=== PATIENT | male | born 1950 | race Caucasian/White ===

== ENCOUNTER 2024-05-19 15:04 | Inpatient (IN) | payer OTHER, MEDICARE, MEDICAID ==
[~2024-05-19] VITALS: Ht 165.1 cm; Wt 125.0 kg
[2024-05-19] MEDS: LORazepam 2 mg/ml vial IM ONE (15:37)
[2024-05-19] MEDS: diphenhydrAMINE 50 mg/ml inj IM ONE (15:38)
[2024-05-19] MEDS: haloperidol lactate 5mg/ml inj IM ONE (15:38)
[2024-05-19 17:33] LABS: BILIRUBIN,URINE NEGATIVE (Neg); CLARITY,URINE CLEAR (Clear); COLOR,URINE YELLOW (Yellow); GLUCOSE, URINE 500 mg/dl (Neg); KETONES,URINE NEGATIVE (Neg); LEUKOCYTE ESTERASE ,URINE NEGATIVE (Neg); NITRITES, URINE NEGATIVE (Neg); OCCULT BLOOD,URINE NEGATIVE (Neg); PH,URINE 5.5 (4.8-8.0); PROTEIN,URINE NEGATIVE (Neg); UROBILINOGEN,URINE 0.2 E.U/dL (0.2-1.0)
[2024-05-19 17:34] LABS: ALBUMIN 3.3 G/DL (3.4-5.0); ANION GAP 7 (8-16); BLOOD UREA NITROGEN 19 MG/DL (7-18); BUN/CREATININE RATIO 16.2 (10.0-20.0); CALCIUM 8.2 MG/DL (8.5-10.1); CHLORIDE 104 MMOL/L (99-107); CREATININE 1.17 MG/DL (0.60-1.10); ETHANOL 290 MG/DL (<10); GLUCOSE 160 MG/DL (70-104); MAGNESIUM 2.1 MG/DL (1.5-2.4); POTASSIUM 4.5 MMOL/L (3.5-5.1); PRO BRAIN NATRIURETIC PEPTIDE 396 PG/ML (0-125); SODIUM 140 MMOL/L (135-145); TOTAL CARBON DIOXIDE 28.7 MMOL/L (24-32); eCRCL 51 ML/MIN; eGFR 61 ML/MIN
[2024-05-19 17:35] LABS: BASOPHILS % (AUTO) 0.4 % (0-1); EOSINOPHILS # (AUTO) 0.1 X10'3 (0-0.9); EOSINOPHILS % (AUTO) 2.2 % (0-6); HEMATOCRIT 42.5 % (42.0-52.0); HEMOGLOBIN 14.2 g/dl (14.0-17.9); LYMPHOCYTES % (AUTO) 30.9 % (21-51); MEAN CORPUSCULAR HEMOGLOBIN 33.6 PG (27.0-31.0); MEAN CORPUSCULAR HGB CONC 33.5 g/dL (33.0-36.5); MEAN CORPUSCULAR VOLUME 100.4 FL (78-98); MEAN PLATELET VOLUME 9.2 FL (7.4-10.4); MONOCYTES # (AUTO) 0.6 X10'3 (0-0.9); MONOCYTES % (AUTO) 8.8 % (2-12); NEUTROPHILS # (AUTO) 3.8 X10'3 (1.8-7.7); NEUTROPHILS % (AUTO) 57.7 % (42-75); PLATELET COUNT 210 X10'3 (140-440); RED BLOOD COUNT 4.23 X10'6 (4.70-6.10); RED CELL DISTRIBUTION WIDTH 15.3 % (11.5-14.5); WHITE BLOOD COUNT 6.6 X10'3 (4.5-11.0)
[2024-05-19 17:37] LABS: APTT 28 SECONDS (22-32); PROTHROMBIN TIME 10.5 SECONDS (9.0-12.0)
[2024-05-19 17:41] LABS: UA COLLECTION TYPE CLN CATCH MIDSTREAM
[2024-05-19] MEDS ORDERED: potassium Cl 20 mEq SR tablet PO PRN (17:45)
[2024-05-19] MEDS ORDERED: haloperidol 5mg tablet PO PRN (17:45)
[2024-05-19] MEDS ORDERED: magnesium sulf-water 2g/50mL 50 ML IV PRN (17:45)
[2024-05-19] MEDS ORDERED: acetaminophen 325mg tablet PO PRN (17:45)
[2024-05-19] MEDS ORDERED: dextrose 50%-water 50ml dispensing syringe IV PRN (17:45)
[2024-05-19] MEDS ORDERED: ondansetron/PF 4mg/2ml inj IV PRN (17:45)
[2024-05-19] MEDS ORDERED: magnesium Cl slow-release 64mg tablet PO PRN (17:45)
[2024-05-19] MEDS ORDERED: morphine 2 MG/ML inj. syringe IV PRN (17:45)
[2024-05-19] MEDS ORDERED: cyclobenzaprine 10mg tablet PO PRN (17:45)
[2024-05-19] MEDS ORDERED: magnesium sulf-water 4G/100mL 100 ML IV PRN (17:45)
[2024-05-19] MEDS ORDERED: potassium Cl 40MEQ/1/2NS 520ml 520 ML IV PRN (17:45)
[2024-05-19] MEDS ORDERED: mag hydrox/Alum hydrox/simeth 30ml oral suspension PO PRN (17:45)
[2024-05-19] MEDS: furosemide 10 MG/1 ML 10ml inj IV ONE (19:07)
[2024-05-19 19:27] LABS: ALANINE AMINOTRANSFERASE 67 U/L (12-78); ALBUMIN 3.1 G/DL (3.4-5.0); ALBUMIN/GLOBULIN RATIO 0.8 (1.1-1.5); ALKALINE PHOSPHATASE 273 IU/L (46-116); ASPARTATE AMINO TRANSFERASE 24 U/L (10-37); BILIRUBIN,DIRECT 0.3 MG/DL (0-0.3); BILIRUBIN,TOTAL 0.6 MG/DL (0.1-1.0)
[2024-05-19] MEDS: heparin, porcine 5000 units/ml vial SQ SCH (20:00)
[2024-05-19] MEDS: K and/or MAG REPLACEMENT MC SCH (20:00)
[2024-05-19 20:21] LABS: HEMOGLOBIN A1C 8.2 % (4.5-6.2)
[2024-05-19 20:43] LABS: URINE AMPHETAMINE SCREEN NEGATIVE (Neg); URINE BARBITUATE SCREEN NEGATIVE (Neg); URINE BENZODIAZEPINES SCREEN NEGATIVE (Neg); URINE CANNABINOID SCREEN NEGATIVE (Neg); URINE COCAINE SCREEN NEGATIVE (Neg); URINE METHADONE SCREEN NEGATIVE (Neg); URINE OPIATE SCREEN NEGATIVE (Neg); URINE PHENCYCLIDINE SCREEN NEGATIVE (Neg)
[2024-05-19] MEDS ORDERED: thiamine 100mg/ml 2ml inj. IV SCH (21:00)
[2024-05-19] MEDS: thiamine 100mg/ml 2ml inj. IV SCH (22:26)
[2024-05-19] MEDS: metoprolol succinate 25mg (24-HOUR) SR. Tablet PO SCH (22:26)
[2024-05-19] MEDS: diltiazem 5mg/ml 5ml inj. IV ONE (22:51)
[2024-05-19] MEDS: diltiazem-NS 100mg/100ml 100 ML IV SCH ×2 (23:02→23:23)
[2024-05-19] MEDS: LORazepam 2 mg/ml vial IV PRN (23:10)
[2024-05-19 23:40] VITALS: BP 144/69; PULSE 117; RESP 22; TEMP 97.8; O2SAT 98
[2024-05-20] VITALS (23 sets, daily range): BP systolic 112–154; BP diastolic 56–102; PULSE 78–122; RESP 15–22; TEMP 97–99.7; O2SAT 91–96
[2024-05-20 07:04] LABS: PROTHROMBIN TIME 10.8 SECONDS (9.0-12.0)
[2024-05-20 07:11] LABS: ALANINE AMINOTRANSFERASE 54 U/L (12-78); ALBUMIN 3.1 G/DL (3.4-5.0); ALBUMIN/GLOBULIN RATIO 0.8 (1.1-1.5); ALKALINE PHOSPHATASE 242 IU/L (46-116); AMYLASE 63 U/L (25-115); ANION GAP 8 (8-16); ASPARTATE AMINO TRANSFERASE 24 U/L (10-37); BLOOD UREA NITROGEN 21 MG/DL (7-18); CALCIUM 8.5 MG/DL (8.5-10.1); CHLORIDE 104 MMOL/L (99-107); CREATININE 1.31 MG/DL (0.60-1.10); GLUCOSE 191 MG/DL (70-104); LIPASE 66 U/L (16-77); MAGNESIUM 1.7 MG/DL (1.5-2.4); PHOSPHORUS 2.7 MG/DL (2.3-4.5); POTASSIUM 4.6 MMOL/L (3.5-5.1); SODIUM 141 MMOL/L (135-145); TOTAL CARBON DIOXIDE 29.1 MMOL/L (24-32); TOTAL PROTEIN 6.8 G/DL (6.4-8.2); eCRCL 44 ML/MIN; eGFR 54 ML/MIN
[2024-05-20 07:15] LABS: BASOPHILS % (AUTO) 0.4 % (0-1); EOSINOPHILS % (AUTO) 0.5 % (0-6); HEMATOCRIT 39.2 % (42.0-52.0); HEMOGLOBIN 13.4 g/dl (14.0-17.9); LYMPHOCYTES % (AUTO) 10.6 % (21-51); MEAN CORPUSCULAR HEMOGLOBIN 33.5 PG (27.0-31.0); MEAN CORPUSCULAR VOLUME 98.4 FL (78-98); MEAN PLATELET VOLUME 8.9 FL (7.4-10.4); MONOCYTES # (AUTO) 0.7 X10'3 (0-0.9); MONOCYTES % (AUTO) 6.9 % (2-12); NEUTROPHILS # (AUTO) 7.7 X10'3 (1.8-7.7); NEUTROPHILS % (AUTO) 81.6 % (42-75); PLATELET COUNT 189 X10'3 (140-440); RED BLOOD COUNT 3.99 X10'6 (4.70-6.10); RED CELL DISTRIBUTION WIDTH 15.2 % (11.5-14.5); WHITE BLOOD COUNT 9.4 X10'3 (4.5-11.0)
[2024-05-20] MEDS: multivitamins, therapeutics tablet PO SCH (07:27)
[2024-05-20] MEDS: diltiazem CD 180mg cap (once-daily) PO SCH (07:27)
[2024-05-20] MEDS: folic acid 1mg/0.2ml inj IV SCH (07:33)
[2024-05-20] MEDS: pantoprazole 40 MG vial IV SCH (07:35)
[2024-05-20] MEDS ORDERED: glucagon, human recombinant 1mg kit SUBCUT PRN (08:00)
[2024-05-20] MEDS ORDERED: dextrose 50%-water 50ml dispensing syringe IV PRN ×2 (08:00)
[2024-05-20] MEDS ORDERED: atenolol 50mg tablet PO SCH (08:00)
[2024-05-20] MEDS ORDERED: folic acid 1mg/0.2ml inj IV SCH (08:00)
[2024-05-20] MEDS ORDERED: multivitamins, therapeutics tablet PO SCH (08:00)
[2024-05-20] MEDS ORDERED: DEXTROSE 15 GM of carb/4 tabs (each vial/BOTTLE has 4 tablets) PO PRN ×2 (08:00)
[2024-05-20] MEDS: linagliptin 5mg tablet PO SCH (10:42)
[2024-05-20] MEDS: HYDROcodone/acetaminophen 5mg/325mg tablet PO PRN (11:42)
[2024-05-20] MEDS: INSULIN LISPRO 100 UNIT/ML INSULN.PEN MULTI-DOSE SQ SCH (13:15)
[2024-05-20] MEDS: guaiFENesin ER 600mg tablet PO SCH (13:18)
[2024-05-20] MEDS: furosemide 40mg/4ml inj IV SCH (13:18)
[2024-05-20] MEDS ORDERED: SERT25TA PO (16:05)
[2024-05-20] MEDS: albuterol 2.5 MG/3 ML nebule NEB PRN (16:09)
[2024-05-20] MEDS ORDERED: MIRT-67 PO (16:20)
[2024-05-20] MEDS ORDERED: ADV50100 INH (16:20)
[2024-05-20] MEDS ORDERED: FLUT1BLS13 INH (16:20)
[2024-05-20] MEDS ORDERED: MIRT-142 PO (16:20)
[2024-05-20] MEDS ORDERED: HYDR-3686 PO (16:20)
[2024-05-20] MEDS ORDERED: APIX5TAB3 PO (16:20)
[2024-05-20] MEDS ORDERED: EMPA25TA PO (16:20)
[2024-05-20] MEDS ORDERED: POTA-208 PO (16:20)
[2024-05-20] MEDS ORDERED: FURO-150 PO (16:20)
[2024-05-20] MEDS ORDERED: ROSU20TA98 PO (16:20)
[2024-05-20] MEDS ORDERED: METF-436 PO (16:20)
[2024-05-20] MEDS ORDERED: CYAN500T71 PO (16:20)
[2024-05-20] MEDS ORDERED: CHOL20004 PO (16:20)
[2024-05-20] MEDS ORDERED: guaiFENesin ER 600mg tablet PO SCH (17:30)
[2024-05-20] MEDS ORDERED: budesonide 0.5mg/2ml UD nebule IH SCH (20:00)
[2024-05-20] MEDS: budesonide 0.5mg/2ml UD nebule IH SCH (20:22)
[2024-05-20] MEDS: ipratropium/albuterol 3ml nebule NEB SCH (20:22)
[2024-05-20] MEDS: mirtazapine 15mg tablet PO SCH (20:52)
[2024-05-20] MEDS: atorvastatin 20mg tablet PO SCH (20:53)
[2024-05-20] MEDS: nystatin 15 GM powder TP SCH (20:54)
[2024-05-20] MEDS ORDERED: albuterol 2.5 MG/3 ML nebule NEB SCH (21:00)
[2024-05-21] VITALS (11 sets, daily range): BP systolic 127–150; BP diastolic 47–84; PULSE 79–104; RESP 13–21; TEMP 97.8–99.5; O2SAT 91–97
[2024-05-21] MEDS: haloperidol lactate 5mg/ml inj IM PRN (01:56)
[2024-05-21 07:51] LABS: BASOPHILS # (AUTO) 0.1 X10'3 (0-0.2); BASOPHILS % (AUTO) 0.8 % (0-1); EOSINOPHILS # (AUTO) 0.1 X10'3 (0-0.9); HEMATOCRIT 38.4 % (42.0-52.0); HEMOGLOBIN 13.2 g/dl (14.0-17.9); LYMPHOCYTES # (AUTO) 1.2 X10'3 (1.1-4.8); LYMPHOCYTES % (AUTO) 13.2 % (21-51); MEAN CORPUSCULAR HGB CONC 34.4 g/dL (33.0-36.5); MEAN CORPUSCULAR VOLUME 98.9 FL (78-98); MEAN PLATELET VOLUME 9.1 FL (7.4-10.4); MONOCYTES # (AUTO) 0.6 X10'3 (0-0.9); MONOCYTES % (AUTO) 6.4 % (2-12); NEUTROPHILS % (AUTO) 78.6 % (42-75); PLATELET COUNT 147 X10'3 (140-440); RED BLOOD COUNT 3.88 X10'6 (4.70-6.10); WHITE BLOOD COUNT 8.9 X10'3 (4.5-11.0)
[2024-05-21 08:28] LABS: ALANINE AMINOTRANSFERASE 39 U/L (12-78); ALBUMIN 2.8 G/DL (3.4-5.0); ALBUMIN/GLOBULIN RATIO 0.7 (1.1-1.5); ALKALINE PHOSPHATASE 221 IU/L (46-116); ANION GAP 8 (8-16); BILIRUBIN,TOTAL 1.9 MG/DL (0.1-1.0); BLOOD UREA NITROGEN 26 MG/DL (7-18); CALCIUM 8.2 MG/DL (8.5-10.1); CHLORIDE 101 MMOL/L (99-107); CREATININE 1.53 MG/DL (0.60-1.10); GLUCOSE 210 MG/DL (70-104); MAGNESIUM 1.9 MG/DL (1.5-2.4); SODIUM 138 MMOL/L (135-145); TOTAL CARBON DIOXIDE 28.6 MMOL/L (24-32); TOTAL PROTEIN 6.7 G/DL (6.4-8.2); eCRCL 37 ML/MIN; eGFR 45 ML/MIN
[2024-05-21 08:33] LABS: ASPARTATE AMINO TRANSFERASE 27 U/L (10-37); PHOSPHORUS 2.6 MG/DL (2.3-4.5); POTASSIUM 3.9 MMOL/L (3.5-5.1)
[2024-05-21] MEDS ORDERED: LORazepam 2 mg/ml vial IV PRN ×3 (09:45→18:25)
[2024-05-21] MEDS: metFORMIN 500mg tablet PO SCH (10:02)
[2024-05-21] MEDS: sertraline 25mg tablet PO SCH (10:03)
[2024-05-21] MEDS: cholecalciferol (vitamin D3) 1,000 unit (25mcg) tablet PO SCH (10:03)
[2024-05-21] MEDS: EMPAGLIFLOZIN 25 MG TABLET PO SCH (10:03)
[2024-05-21] MEDS: cyanocobalamin 500mcg tablet PO SCH (10:03)
[2024-05-21] MEDS ORDERED: glucagon, human recombinant 1mg kit SUBCUT PRN (13:00)
[2024-05-21] MEDS ORDERED: dextrose 50%-water 50ml dispensing syringe IV PRN ×2 (13:00)
[2024-05-21] MEDS ORDERED: DEXTROSE 15 GM of carb/4 tabs (each vial/BOTTLE has 4 tablets) PO PRN ×2 (13:00)
[2024-05-21] MEDS: INSULIN LISPRO 100 UNIT/ML INSULN.PEN MULTI-DOSE SQ SCH (13:21)
[2024-05-21] MEDS: apixaban 5mg tablet PO SCH (21:11)
[2024-05-22] VITALS (11 sets, daily range): BP systolic 100–150; BP diastolic 43–84; PULSE 86–105; RESP 14–20; TEMP 97.1–98.4; O2SAT 91–98
[2024-05-22] MEDS: Melatonin 3mg tablet PO ONE (00:55)
[2024-05-22] MEDS: hydrOXYzine 25 MG tablet PO PRN (00:55)
[2024-05-22 07:25] LABS: BASOPHILS % (AUTO) 0.3 % (0-1); EOSINOPHILS # (AUTO) 0.1 X10'3 (0-0.9); EOSINOPHILS % (AUTO) 1.1 % (0-6); HEMATOCRIT 39.6 % (42.0-52.0); HEMOGLOBIN 13.4 g/dl (14.0-17.9); LYMPHOCYTES # (AUTO) 1.1 X10'3 (1.1-4.8); LYMPHOCYTES % (AUTO) 9.1 % (21-51); MEAN CORPUSCULAR HEMOGLOBIN 33.2 PG (27.0-31.0); MEAN CORPUSCULAR HGB CONC 33.8 g/dL (33.0-36.5); MEAN CORPUSCULAR VOLUME 98.4 FL (78-98); MONOCYTES # (AUTO) 0.7 X10'3 (0-0.9); MONOCYTES % (AUTO) 6.4 % (2-12); NEUTROPHILS # (AUTO) 9.8 X10'3 (1.8-7.7); NEUTROPHILS % (AUTO) 83.1 % (42-75); PLATELET COUNT 162 X10'3 (140-440); RED BLOOD COUNT 4.02 X10'6 (4.70-6.10); RED CELL DISTRIBUTION WIDTH 14.7 % (11.5-14.5); WHITE BLOOD COUNT 11.8 X10'3 (4.5-11.0)
[2024-05-22 07:39] LABS: ALANINE AMINOTRANSFERASE 38 U/L (12-78); ALBUMIN 2.9 G/DL (3.4-5.0); ALBUMIN/GLOBULIN RATIO 0.7 (1.1-1.5); ALKALINE PHOSPHATASE 275 IU/L (46-116); ANION GAP 8 (8-16); ASPARTATE AMINO TRANSFERASE 25 U/L (10-37); BILIRUBIN,TOTAL 1.9 MG/DL (0.1-1.0); BLOOD UREA NITROGEN 30 MG/DL (7-18); BUN/CREATININE RATIO 16.7 (10.0-20.0); CALCIUM 8.7 MG/DL (8.5-10.1); CHLORIDE 99 MMOL/L (99-107); GLUCOSE 221 MG/DL (70-104); MAGNESIUM 1.9 MG/DL (1.5-2.4); PHOSPHORUS 3.7 MG/DL (2.3-4.5); POTASSIUM 3.4 MMOL/L (3.5-5.1); SODIUM 138 MMOL/L (135-145); TOTAL CARBON DIOXIDE 30.7 MMOL/L (24-32); eCRCL 32 ML/MIN; eGFR 37 ML/MIN
[2024-05-22 09:19] LABS: C-REACTIVE PROTEIN 7.24 MG/DL (0.0-0.5)
[2024-05-22] MEDS: pantoprazole 40mg Tablet.DR PO SCH (09:42)
[2024-05-22] MEDS: potassium Cl 20 mEq SR tablet PO PRN ×2 (16:25→22:10)
[2024-05-22] MEDS: acetaminophen 325mg tablet PO PRN (16:25)
[2024-05-22] MEDS: furosemide 40mg/4ml inj IV SCH (16:26)
[2024-05-22] MEDS ORDERED: potassium Cl 20 mEq SR tablet PO PRN (20:40)
[2024-05-22] MEDS ORDERED: magnesium Cl slow-release 64mg tablet PO PRN (20:40)
[2024-05-22] MEDS: HYDROcodone/acetaminophen 10/325mg tab PO PRN (22:24)
[2024-05-23 02:00] VITALS: BP 143/72; PULSE 96; RESP 16; TEMP 97.6; O2SAT 96
[2024-05-23 03:38] LABS: BASOPHILS # (AUTO) 0.1 X10'3 (0-0.2); BASOPHILS % (AUTO) 0.6 % (0-1); EOSINOPHILS # (AUTO) 0.2 X10'3 (0-0.9); EOSINOPHILS % (AUTO) 1.5 % (0-6); HEMATOCRIT 40.6 % (42.0-52.0); HEMOGLOBIN 14.1 g/dl (14.0-17.9); LYMPHOCYTES # (AUTO) 0.9 X10'3 (1.1-4.8); LYMPHOCYTES % (AUTO) 8.8 % (21-51); MEAN CORPUSCULAR HEMOGLOBIN 34.5 PG (27.0-31.0); MEAN CORPUSCULAR HGB CONC 34.7 g/dL (33.0-36.5); MEAN CORPUSCULAR VOLUME 99.3 FL (78-98); MEAN PLATELET VOLUME 8.8 FL (7.4-10.4); MONOCYTES # (AUTO) 0.6 X10'3 (0-0.9); MONOCYTES % (AUTO) 6.2 % (2-12); NEUTROPHILS # (AUTO) 8.3 X10'3 (1.8-7.7); NEUTROPHILS % (AUTO) 82.9 % (42-75); PLATELET COUNT 173 X10'3 (140-440); RED BLOOD COUNT 4.09 X10'6 (4.70-6.10); RED CELL DISTRIBUTION WIDTH 14.7 % (11.5-14.5)
[2024-05-23 04:10] LABS: ALANINE AMINOTRANSFERASE 45 U/L (12-78); ALBUMIN 2.9 G/DL (3.4-5.0); ALBUMIN/GLOBULIN RATIO 0.6 (1.1-1.5); ALKALINE PHOSPHATASE 320 IU/L (46-116); ANION GAP 8 (8-16); ASPARTATE AMINO TRANSFERASE 36 U/L (10-37); BILIRUBIN,TOTAL 1.7 MG/DL (0.1-1.0); BLOOD UREA NITROGEN 33 MG/DL (7-18); BUN/CREATININE RATIO 17.3 (10.0-20.0); CALCIUM 8.9 MG/DL (8.5-10.1); CHLORIDE 99 MMOL/L (99-107); CREATININE 1.91 MG/DL (0.60-1.10); GLUCOSE 196 MG/DL (70-104); PHOSPHORUS 4.7 MG/DL (2.3-4.5); POTASSIUM 3.4 MMOL/L (3.5-5.1); SODIUM 138 MMOL/L (135-145); TOTAL CARBON DIOXIDE 31.2 MMOL/L (24-32); TOTAL PROTEIN 7.4 G/DL (6.4-8.2); eCRCL 30 ML/MIN; eGFR 35 ML/MIN
[2024-05-23 06:00] VITALS: BP 144/76; PULSE 76; RESP 14; TEMP 97.8; O2SAT 94
[2024-05-23 08:00] VITALS: RESP 14; O2SAT 94
[2024-05-23 08:45] VITALS: PULSE 96; PULSE 98; RESP 18; O2SAT 94
[2024-05-23 11:00] VITALS: BP 127/67; PULSE 94; RESP 18; TEMP 98.1; O2SAT 95
[2024-05-23 15:00] VITALS: BP 103/40; PULSE 91; RESP 10; TEMP 98.9; O2SAT 95
[2024-05-23] MEDS ORDERED: LORazepam 2 mg/ml vial IV PRN (18:25)
== END 2024-05-23 18:35 | disposition home or self-care (01) | DRG 291 ==
LOC: ER 15:04 → ED HOLD 17:52 → PCU 3S 23:35
PROVIDERS: ADMIT Internal Medicine; ATTEND Internal Medicine
DX: I50.33 Acute on chronic diastolic (congestive) heart failure (principal); J96.01 Acute respiratory failure with hypoxia; N17.0 Acute kidney failure with tubular necrosis; F23 Brief psychotic disorder; Z68.42 Body mass index [BMI] 45.0-49.9, adult; I48.91 Unspecified atrial fibrillation; F10.129 Alcohol abuse with intoxication, unspecified; G47.30 Sleep apnea, unspecified; J44.9 Chronic obstructive pulmonary disease, unspecified; F32.A Depression, unspecified; F41.9 Anxiety disorder, unspecified; S80.822A Blister (nonthermal), left lower leg, initial encounter; S80.821A Blister (nonthermal), right lower leg, initial encounter; X58.XXXA Exposure to other specified factors, initial encounter; Y93.89 Activity, other specified; N18.2 Chronic kidney disease, stage 2 (mild); F43.10 Post-traumatic stress disorder, unspecified; D75.89 Other specified diseases of blood and blood-forming organs; E11.40 Type 2 diabetes mellitus with diabetic neuropathy, unspecified; E11.22 Type 2 diabetes mellitus with diabetic chronic kidney disease; E66.01 Morbid (severe) obesity due to excess calories; Z66 Do not resuscitate; M25.532 Pain in left wrist; D72.829 Elevated white blood cell count, unspecified; I87.2 Venous insufficiency (chronic) (peripheral); Y90.8 Blood alcohol level of 240 mg/100 ml or more
CPT/HCPCS: 36415; 71045; 73110; 73200; 76700; 80048; 80053; 80076; 80305; 80320; 81003; 82150; 82948; 83036; 83605; 83690; 83735; 83880; 84100; 84145; 84484; 85025; 85610; 85651; 85730; 86140; 87081; 87811; 93005; 93306; 93970; 94640; 94664; 94760; 96372; 97110; 97116; 97161; 97530; 99285; A4615; A5200; A6212; A6213; A6223; A6250; A6446; A6449; A6590; G0378; J1200; J1630; J1644; J1815; J1940; J2060; J2470; J3411; J3490; Q0177